=== PATIENT | male | born 1975 | race Caucasian/White ===

== ENCOUNTER 2016-12-05 18:45 | Emergency (ER) | payer OTHER ==
[2016-12-05 19:02] VITALS: BP 135/64
--- NOTE | 2016-12-05 19:28 | UC ---
Head Injury HPI - History Of Current Complaint Chief Complaint: UCHeadInjury Stated Complaint: HEAD INJURY Time Seen by Provider: 12/05/16 19:22 Hx Obtained From: Patient Onset/Duration: Sudden Onset - Hit head on a steel beam walking up stair from the cellar. Headache started 30 minutes after hitting head., Lasting Hours - 7, Still Present Severity Currently: Moderate Severity Initially: Moderate Character: Throbbing Associated Signs And Symptoms: Positive: Neck Pain - started 2 weeks ago, no worsening since the head trauma.. Negative: LOC (Time In Secs./Mins/Hrs), Confusion, Memory Loss, Seizure, Nausea - Risk Factors SDH Risk Factor: Recent Trauma - Allergies/Home Medications Allergies/Adverse Reactions: Allergies Allergy/AdvReac Type Severity Reaction Status Date / Time Doxycycline Allergy Severe HEART STOPS Verified 12/05/16 18:51 PMH/Surg Hx/FS Hx/Imm Hx Previously Healthy: Yes - Surgical History Surgical History: Yes Surgery Procedure, Year, and Place: CARDIAC CATH - Family History Known Family History: Positive: Cardiac Disease Negative: Hypertension, Diabetes - Social History Occupation: Employed Full-time Lives: With Family Alcohol Use: None Substance Use Type: None Smoking Status (MU): Heavy Every Day Tobacco Smoker Type: Cigarettes Amount Used/How Often: 1/2 PPD Household Exposure Type: Cigarettes Review of Systems Eyes: Blurred Vision - transiently All Other Systems Reviewed And Are Negative: Yes Physical Exam Triage Information Reviewed: Yes Appearance: Well-Appearing, No Pain Distress, Well-Nourished Vital Signs: Initial Vital Signs Temp 98.7 F 12/05/16 18:52 Pulse 69 12/05/16 18:52 Resp 16 12/05/16 18:52 BP 135/64 12/05/16 18:52 Pulse Ox 99 12/05/16 18:52 Vital Signs Reviewed: Yes Eyes: Positive: Conjunctiva Inflamed ENT: Positive: Pharynx normal, TMs normal Neck: Positive: Tenderness @ - all up the spinous processes. Has been chronic. Respiratory Exam: Normal Cardiovascular Exam: Normal Musculoskeletal Exam: Normal Neurological Exam: Normal Psychological Exam: Normal Skin Exam: Normal Head Injury Course/Dx - Differential Dx/Diagnosis Differential Diagnosis/HQI/PQRI: Concussion Without LOC, Contusion, Hematoma Provider Diagnoses: Contusion head. Headache Discharge - Discharge Plan Condition: Stable Disposition: HOME Patient Education Materials: Scalp Contusion in Adults (ED), Hematoma (ED), Post Concussion Syndrome (ED) Referrals: Donavan Calvert MD [Primary Care Provider] - If Needed Additional Instructions: Ice every 2 hours for 48 hours. Sleep may get rid of the headache. Ibuprofen for pain.
== END 2016-12-05 19:51 | disposition home or self-care (01) ==
LOC: UCCORT 18:45
DX: S00.93XA Contusion of unspecified part of head, initial encounter (principal); R51 Headache; W22.09XA Striking against other stationary object, initial encounter; Y93.89 Activity, other specified; Y92.008 Other place in unspecified non-institutional (private) residence as the place of occurrence of the external cause; M54.2 Cervicalgia; Z88.1 Allergy status to other antibiotic agents; F17.210 Nicotine dependence, cigarettes, uncomplicated
CPT/HCPCS: 99211; G0463

== ENCOUNTER 2017-08-01 07:12 | Emergency (ER) | payer OTHER ==
[2017-08-01 08:23] VITALS: BP 128/79
--- NOTE | 2017-08-01 08:55 | UC ---
Throat Pain/Nasal Brian HPI - HPI Summary HPI Summary: C/O left sided throat pain over the last several months. Pain worse recently - History of Current Complaint Chief Complaint: UCEar Stated Complaint: SORE THROAT Time Seen by Provider: 08/01/17 08:17 Hx Obtained From: Patient Onset/Duration: Gradual Onset, Lasting Weeks - 8, Worse Since - last 4-5 days Severity: Moderate Pain Intensity: 0 Cough: None Associated Signs & Symptoms: Positive: Dysphagia. Negative: Drooling, Wheezing , Hoarseness, Sinus Discomfort Related History: Seasonal Allergies - Epiglottits Risk Factors Epiglottis Risk Factors: Negative - Allergies/Home Medications Allergies/Adverse Reactions: Allergies Allergy/AdvReac Type Severity Reaction Status Date / Time doxycycline Allergy Heart stops Verified 08/01/17 08:24 hay fever Allergy Eyes Uncoded 08/01/17 08:25 Itchy/Swollen/Red/Watery PMH/Surg Hx/FS Hx/Imm Hx Previously Healthy: Yes - Surgical History Surgical History: Yes Surgery Procedure, Year, and Place: CARDIAC CATH 2005 - Family History Known Family History: Positive: Cardiac Disease Negative: Hypertension, Diabetes - Social History Occupation: Employed Full-time Lives: With Family Alcohol Use: None Substance Use Type: Excessive Caffeine Smoking Status (MU): Light Every Day Tobacco Smoker Type: Cigarettes Amount Used/How Often: 1/2 PPD Have You Smoked in the Last Year: Yes Household Exposure Type: Cigarettes Review of Systems ENT: Sore Throat, Nasal Discharge Is Patient Immunocompromised?: No All Other Systems Reviewed And Are Negative: Yes Physical Exam Triage Information Reviewed: Yes Appearance: Well-Appearing, No Pain Distress, Well-Nourished Vital Signs: Initial Vital Signs Temp 98.9 F 08/01/17 08:12 Pulse 67 08/01/17 08:12 Resp 18 08/01/17 08:12 BP 128/79 08/01/17 08:12 Pulse Ox 100 08/01/17 08:12 Vital Signs Reviewed: Yes Eyes: Positive: Conjunctiva Clear ENT: Positive: Nasal congestion - with allergic changes, TMs normal, Tonsillar swelling - on the left side with prominence compared to the right side Dental Exam: Normal Dental: Positive: Dental Fracture @. Negative: Percussion Tenderness @ Neck: Positive: Tenderness @ - left submandibular Lympth nodes, Enlarged Nodes @ - left submandibular Respiratory Exam: Normal Cardiovascular Exam: Normal Musculoskeletal Exam: Normal Neurological Exam: Normal Psychological Exam: Normal Skin Exam: Normal Throat Pain/Nasal Course/Dx - Differential Dx/Diagnosis Differential Diagnosis/HQI/PQRI: Peritonsillar Abscess, Pharyngitis, Tonsillitis Provider Diagnoses: Left peritonsillar abscess Discharge - Sign-Out/Discharge Documenting (check all that apply): Discharge - Discharge Plan Condition: Stable Disposition: HOME Prescriptions: Amoxicillin/Clavulanate TAB* [Augmentin TAB 875*] 875 mg PO BID #20 tab Patient Education Materials: Peritonsillar Abscess (ED), Amoxicillin/ Clavulanate Potassium (By mouth) Referrals: Donavan Calvert MD [Primary Care Provider] - Additional Instructions: Be sure to floss daily. If you get loose stools with the antibiotic, you can take an imodium (loperamide ) with each antibiotic dose. - Billing Disposition and Condition Condition: STABLE Disposition: HOME
== END 2017-08-01 09:10 | disposition home or self-care (01) ==
LOC: UCCORT 07:12
DX: J36 Peritonsillar abscess (principal); Z88.1 Allergy status to other antibiotic agents; Z91.048 Other nonmedicinal substance allergy status; F17.210 Nicotine dependence, cigarettes, uncomplicated
CPT/HCPCS: 99212; G0463

== ENCOUNTER 2018-05-29 08:30 | Emergency (ER) | payer OTHER ==
[2018-05-29 08:43] VITALS: BP 122/77
--- NOTE | 2018-05-29 08:59 | UC ---
Back Pain HPI - HPI Summary HPI Summary: Fall on ice at home an hour ago. There is pain radiating down the left leg. He hit tailbone and has diffuse low back pain as well. He has prior upper back pain. No prior back surgery. - History of Current Complaint Chief Complaint: UCBackPain Stated Complaint: S/P FALL TAILBONE INJURY Time Seen by Provider: 05/29/18 08:36 Pain Intensity: 10 - Risk Factors AAA Risk Factors: Negative Cauda Equina Risk Factors: Negative - Allergies/Home Medications Allergies/Adverse Reactions: Allergies Allergy/AdvReac Type Severity Reaction Status Date / Time doxycycline Allergy Tachycardia Verified 05/29/18 08:43 PMH/Surg Hx/FS Hx/Imm Hx Previously Healthy: No - prior fractures and upper back pain. - Surgical History Surgical History: Yes Surgery Procedure, Year, and Place: CARDIAC CATH 2005-no stent, no [place] - Family History Known Family History: Positive: Cardiac Disease Negative: Hypertension, Diabetes - Social History Occupation: Employed Full-time Alcohol Use: None Substance Use Type: None Smoking Status (MU): Heavy Every Day Tobacco Smoker Type: Cigarettes Amount Used/How Often: 1 PPD Length of Time of Smoking/Using Tobacco: since age 15 Have You Smoked in the Last Year: Yes Household Exposure Type: Cigarettes Review of Systems All Other Systems Reviewed And Are Negative: Yes Musculoskeletal: Positive: Arthralgia, Decreased ROM, Myalgia Physical Exam Triage Information Reviewed: Yes Appearance: Pain Distress - Obvious pain with changes in position and sitting. Vital Signs: Initial Vital Signs Temp 98.2 F 05/29/18 08:38 Pulse 82 05/29/18 08:38 Resp 18 05/29/18 08:38 BP 122/77 05/29/18 08:38 Pulse Ox 100 05/29/18 08:38 Vital Signs Reviewed: Yes Eyes: Positive: Conjunctiva Clear ENT: Positive: Normal ENT inspection, Pharynx normal Neck: Positive: Supple, Nontender Respiratory: Positive: No respiratory distress, No accessory muscle use Cardiovascular: Positive: Brisk Capillary Refill Abdomen Description: Negative: Distended Musculoskeletal Exam: Other - Diffuse lower back and sacral tenderness. Flexion to 80 degrees and pain. Extension 20 degrees. Neurological Exam: Other - toe raise andheel raise 5/5 strength bharathi. Bharathi patellar reflexes 2+. Neurological: Positive: Alert, Muscle Tone Normal, Other: - straight leg raise causes pain in left leg.. Negative: Fatigued Psychological: Positive: Age Appropriate Behavior Skin: Negative: Rashes Back Pain Course/Dx - Course Course Of Treatment: Fall. No neurologic deficits or suggestion of cord compression. x rays reviewed by me. F/u pcp. Final read shows possible compression fracture. He was counselled that pcp will need to f/u with mri and to discuss bone density if it is in fact a compression fracture. - Differential Dx/Diagnosis Provider Diagnosis: Fall due to ice or snow, Low back pain Discharge - Sign-Out/Discharge Documenting (check all that apply): Patient Departure All imaging exams completed and their final reports reviewed: Yes - Discharge Plan Condition: Fair Disposition: HOME Prescriptions: HYDROcodone/ACETAMIN 5-325 MG* [L[place] 5-325 TAB*] 2 tab PO Q6H PRN #20 tab MDD 6 PRN Reason: Pain Patient Education Materials: Acute Low Back Pain (ED), Back Pain (ED) Referrals: Donavan Calvert MD [Primary Care Provider] - 1 Day Additional Instructions: Possible compression fracture of the back which may need an MRI for follow up and a discussion about bone density with your primary care doctor. - Billing Disposition and Condition Condition: FAIR Disposition: Home
== END 2018-05-29 10:15 | disposition home or self-care (01) ==
LOC: UCCORT 08:30
DX: M54.5 Low back pain (principal); M79.605 Pain in left leg; M54.89 Other dorsalgia; F17.210 Nicotine dependence, cigarettes, uncomplicated; Z88.1 Allergy status to other antibiotic agents; W00.9XXA Unspecified fall due to ice and snow, initial encounter; Y92.9 Unspecified place or not applicable
CPT/HCPCS: 72100; 72220; 99212; G0463

== ENCOUNTER 2018-10-22 07:09 | Emergency (ER) | payer OTHER ==
[2018-10-22 07:23] VITALS: BP 128/69
--- NOTE | 2018-10-22 08:04 | UC ---
Elbow Pain - HPI Summary HPI Summary: 2 week history of medial right elbow pain, acute onset one day when he lifted a cofee mug and experienced a sharp pain. Mild swelling off and on. Has not used analgesics, but has been icing the area regularly with some relief. 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 - History of Current Complaint Chief Complaint: UCUpperExtremity Stated Complaint: RIGHT ELBOW COMPLAINT Time Seen by Provider: 10/22/18 07:57 Hx Obtained From: Patient Onset/Duration: Weeks Severity Initially: Moderate Severity Currently: Mild Pain Intensity: 2 Location Of Pain: Is Discrete @ - medial right elbow Character: Sharp, Aching Aggravating Factor(s): Movement, Pulling, Twisting Alleviating Factor(s): Rest, Ice Associated Signs And Symptoms: Positive: Negative. Negative: Numbness/Tingling - Allergies/Home Medications Allergies/Adverse Reactions: Allergies Allergy/AdvReac Type Severity Reaction Status Date / Time doxycycline Allergy Tachycardia Verified 10/22/18 07:23 Home Medications: Home Medications NK [No Home Medications Reported] 10/22/18 [History Confirmed 10/22/18] PMH/Surg Hx/FS Hx/Imm Hx Previously Healthy: Yes Psychological History: Anxiety - Surgical History Surgical History: Yes Surgery Procedure, Year, and Place: CARDIAC CATH 2005-no stent, no [place] - Family History Known Family History: Positive: Cardiac Disease Negative: Hypertension, Diabetes - Social History Occupation: Employed Full-time Lives: With Family Alcohol Use: None Substance Use Type: None Smoking Status (MU): Heavy Every Day Tobacco Smoker Type: Cigarettes Amount Used/How Often: 1 PPD Length of Time of Smoking/Using Tobacco: since age 15 Have You Smoked in the Last Year: Yes Household Exposure Type: Cigarettes Review of Systems All Other Systems Reviewed And Are Negative: Yes Constitutional: Positive: Negative Respiratory: Positive: Other - smoker, has tried many modalities to assist stopping, including Chantix and hypnosis. Neurovascular: Positive: Negative. Negative: Decreased Sensation Musculoskeletal: Positive: Arthralgia Neurological: Positive: Negative Is Patient Immunocompromised?: No Physical Exam Triage Information Reviewed: Yes Appearance: Well-Appearing, Pain Distress - mild Vital Signs: Initial Vital Signs Temp 97.6 F 10/22/18 07:19 Pulse 66 10/22/18 07:19 Resp 18 10/22/18 07:19 BP 128/69 10/22/18 07:19 Pulse Ox 100 10/22/18 07:19 Vital Signs Reviewed: Yes Eyes: Positive: Conjunctiva Clear ENT: Positive: Pharynx normal Dental Exam: Normal Respiratory: Positive: Lungs clear, Normal breath sounds Cardiovascular: Positive: RRR, No Murmur Musculoskeletal Exam: Other - No swelling, erythema or warmth right elbow area. Olecranon is tender to palpation medially. No joint effusion. Neurological: Positive: Alert, Muscle Tone Normal Psychological Exam: Other - mildly anxious Diagnostics - Radiology No standard instances Radiology Interpretation Completed By: Radiologist - Impression by Dr. Hunter: unremarkable right elbow. Elbow Pain Course/Dx - Course Course Of Treatment: Brace, ice and physical therapy for treatment of medial epicondylitis. - Differential Dx/Diagnosis Differential Diagnosis/HQI/PQRI: Sprain, Strain, Tendonitis Provider Diagnosis: Medial epicondylitis, right elbow Discharge - Sign-Out/Discharge Documenting (check all that apply): Patient Departure All imaging exams completed and their final reports reviewed: Yes - Discharge Plan Condition: Stable Disposition: HOME Patient Education Materials: Tendinitis (ED) Referrals: Donavan Calvert MD [Primary Care Provider] - Additional Instructions: You have a tendonitis of the right elbow. You have a referral to physical therapy. Use of an elbow brace (look for a tennis elbow brace) can help to off load the tendon and decrease pain. Continue use of ice after activity. - Billing Disposition and Condition Condition: STABLE Disposition: Home
== END 2018-10-22 08:52 | disposition home or self-care (01) ==
LOC: UCCORT 07:09
DX: M77.01 Medial epicondylitis, right elbow (principal); X50.0XXA Overexertion from strenuous movement or load, initial encounter; X50.3XXA Overexertion from repetitive movements, initial encounter; Y93.89 Activity, other specified; Y92.79 Other farm location as the place of occurrence of the external cause; Y99.0 Civilian activity done for income or pay; F17.210 Nicotine dependence, cigarettes, uncomplicated
CPT/HCPCS: 99211; G0463

== ENCOUNTER 2019-03-11 08:37 | Emergency (ER) | payer BC ==
--- OUTSIDE RECORDS SUMMARY | 2019-03-11 08:44 | XMS REPORT | Continuity of Care Document ---
:1975 External Reference #:[id number] Author Name [facility] N.P. Address [address] [place] [address] [address] [place] [address] Problems Active Problems Provider Date Anxiety disorder Donavan Calvert M.D. Onset: 07/24/2016 Social History Type Date Description Comments Sex Unknown ETOH Use Denies alcohol use Recreational Drug Use Denies Drug Use Tobacco Use Start: Unknown Light tobacco smoker (10 or fewer cigarettes/day) Smoking Status Reviewed: 08/23/17 Light tobacco smoker (10 or fewer cigarettes/day) Allergies, Adverse Reactions, Alerts Active Allergies Reaction Severity Comments Date Doxycycline 07/24/2016 Medications Active Medications SIG Qnty Indications Ordering Provider Date Azithromycin 1 tab by mouth 10tabs J20.9 Donaavn Calvert, 02/13/2019 500mg every day x 10 M.D. Tablets days Meloxicam take 1 tablet by 60tabs M25.521 Donavan Calvert, 11/16/2018 15mg Tablets mouth twice a M.D. day as needed Immunizations Description No Information Available Vital Signs Date Vital Result Comment 02/20/2019 11:14am BP Systolic 130 mmHg BP Diastolic 65 mmHg Height 71 inches 5'11" Heart Rate 78 /min Respiratory Rate 16 /min 02/13/2019 3:16pm BP Systolic 150 mmHg BP Diastolic 70 mmHg Height 71 inches 5'11" Weight 211.00 lb BMI (Body Mass Index) 29.4 kg/m2 Heart Rate 101 /min Respiratory Rate 16 /min Results Description No Information Available Procedures Description No Information Available Medical Devices Description No Information Available Encounters Type Date Location Provider Dx Diagnosis Office Visit 02/20/2019 [facility] J44.9 Chronic obstructive 11:15a N.P. pulmonary disease, unspecified N40.1 Benign prostatic hyperplasia with lower urinary tract symp M54.5 Low back pain M79.604 Pain in right leg M25.561 Pain in right knee M79.671 Pain in right foot F41.9 Anxiety disorder, unspecified F33.9 Major depressive disorder, recurrent, unspecified G47.00 Insomnia, unspecified L20.9 Atopic dermatitis, unspecified J30.9 Allergic rhinitis, unspecified F17.210 Nicotine dependence, cigarettes, uncomplicated F43.12 Post-traumatic stress disorder, chronic R35.1 Nocturia L84 Corns and callosities E78.2 Mixed hyperlipidemia H66.92 Otitis media, unspecified, left ear J01.90 Acute sinusitis, unspecified S32.000A Wedge compression fracture of unsp lumbar vertebra, init E55.9 Vitamin D deficiency, unspecified E66.9 Obesity, unspecified M54.42 Lumbago with sciatica, left side M25.521 Pain in right elbow J20.9 Acute bronchitis, unspecified Office Visit 02/13/2019 3:30p [facility] Alex Fernandez44.9 Chronic obstructive N.P. pulmonary disease, unspecified N40.1 Benign prostatic hyperplasia with lower urinary tract symp M54.5 Low back pain M79.604 Pain in right leg M25.561 Pain in right knee M79.671 Pain in right foot F41.9 Anxiety disorder, unspecified F33.9 Major depressive disorder, recurrent, unspecified G47.00 Insomnia, unspecified L20.9 Atopic dermatitis, unspecified J30.9 Allergic rhinitis, unspecified F17.210 Nicotine dependence, cigarettes, uncomplicated F43.12 Post-traumatic stress disorder, chronic R35.1 Nocturia L84 Corns and callosities E78.2 Mixed hyperlipidemia H66.92 Otitis media, unspecified, left ear J01.90 Acute sinusitis, unspecified S32.000A Wedge compression fracture of unsp lumbar vertebra, init E55.9 Vitamin D deficiency, unspecified E66.9 Obesity, unspecified M54.42 Lumbago with sciatica, left side M25.521 Pain in right elbow J20.9 Acute bronchitis, unspecified Office Visit 11/16/2018 10:00a [facility] Alex Fernandez44.9 Chronic obstructive N.P. pulmonary disease, unspecified N40.1 Benign prostatic hyperplasia with lower urinary tract symp M54.5 Low back pain M79.604 Pain in right leg M25.561 Pain in right knee M79.671 Pain in right foot F41.9 Anxiety disorder, unspecified F33.9 Major depressive disorder, recurrent, unspecified G47.00 Insomnia, unspecified L20.9 Atopic dermatitis, unspecified J30.9 Allergic rhinitis, unspecified F17.210 Nicotine dependence, cigarettes, uncomplicated F43.12 Post-traumatic stress disorder, chronic R35.1 Nocturia L84 Corns and callosities E78.2 Mixed hyperlipidemia H66.92 Otitis media, unspecified, left ear J01.90 Acute sinusitis, unspecified S32.000A Wedge compression fracture of unsp lumbar vertebra, init E55.9 Vitamin D deficiency, unspecified E66.9 Obesity, unspecified M54.42 Lumbago with sciatica, left side M25.521 Pain in right elbow Assessments Date Code Description Provider 02/20/2019 J44.9 Chronic obstructive pulmonary disease, [facility], N.P. unspecified 02/20/2019 N40.1 Benign prostatic hyperplasia with lower [facility], N.P. urinary tract symptoms 02/20/2019 M54.5 Low back pain [facility], N.P. 02/20/2019 M79.604 Pain in right leg [facility], N.P. 02/20/2019 M25.561 Pain in right knee [facility], N.P. 02/20/2019 M79.671 Pain in right foot [facility], N.P. 02/20/2019 F41.9 Anxiety disorder, unspecified Long [facility], N.P. 02/20/2019 F33.9 Major depressive disorder, recurrent, [facility], N.P. unspecified 02/20/2019 G47.00 Insomnia, unspecified [facility], N.P. 02/20/2019 L20.9 Atopic dermatitis, unspecified [facility], N.P. 02/20/2019 J30.9 Allergic rhinitis, unspecified [facility], N.P. 02/20/2019 F17.210 Nicotine dependence, cigarettes, [facility], N.P. uncomplicated 02/20/2019 F43.12 Post-traumatic stress disorder, chronic [facility], N.P. 02/20/2019 R35.1 Nocturia [facility], N.P. 02/20/2019 L84 Corns and callosities [facility], N.P. 02/20/2019 E78.2 Mixed hyperlipidemia [facility], N.P. 02/20/2019 H66.92 Otitis media, unspecified, left ear [facility], N.P. 02/20/2019 J01.90 Acute sinusitis, unspecified [facility], N.P. 02/20/2019 S32.000A Wedge compression fracture of unspecified [facility] , N.P. lumbar vertebra, initial encounter for closed fracture 02/20/2019 E55.9 Vitamin D deficiency, unspecified [facility], N.P. 02/20/2019 E66.9 Obesity, unspecified [facility], N.P. 02/20/2019 M54.42 Lumbago with sciatica, left side [facility], N.P. 02/20/2019 M25.521 Pain in right elbow [facility] N.P. 02/20/2019 J20.9 Acute bronchitis, unspecified [facility], N.P. 02/13/2019 J44.9 Chronic obstructive pulmonary disease, [facility], N.P. unspecified 02/13/2019 N40.1 Benign prostatic hyperplasia with lower [facility], N.PGila urinary tract symptoms 02/13/2019 M54.5 Low back pain [facility], N.P. 02/13/2019 M79.604 Pain in right leg [facility] N.P. 02/13/2019 M25.561 Pain in right knee [facility] N.P. 02/13/2019 M79.671 Pain in right foot Logn Trinidad N.P. 02/13/2019 F41.9 Anxiety disorder, unspecified [facility], N.P. 02/13/2019 F33.9 Major depressive disorder, recurrent, [facility] N.P. unspecified 02/13/2019 G47.00 Insomnia, unspecified [facility], N.P. 02/13/2019 L20.9 Atopic dermatitis, unspecified [facility] N.P. 02/13/2019 J30.9 Allergic rhinitis, unspecified [facility] N.P. 02/13/2019 F17.210 Nicotine dependence, cigarettes, [facility] N.P. uncomplicated 02/13/2019 F43.12 Post-traumatic stress disorder, chronic [facility], N.P. 02/13/2019 R35.1 Nocturia [facility], N.P. 02/13/2019 L84 Corns and callosities Long [facility], N.P. 02/13/2019 E78.2 Mixed hyperlipidemia [facility], N.P. 02/13/2019 H66.92 Otitis media, unspecified, left ear [facility], N.P. 02/13/2019 J01.90 Acute sinusitis, unspecified [facility], N.P. 02/13/2019 S32.000A Wedge compression fracture of unspecified [facility] , N.P. lumbar vertebra, initial encounter for closed fracture 02/13/2019 E55.9 Vitamin D deficiency, unspecified [facility], N.P. 02/13/2019 E66.9 Obesity, unspecified [facility], N.P. 02/13/2019 M54.42 Lumbago with sciatica, left side [facility], N.P. 02/13/2019 M25.521 Pain in right elbow [facility], N.P. 02/13/2019 J20.9 Acute bronchitis, unspecified [facility], N.P. 11/16/2018 J44.9 Chronic obstructive pulmonary disease, [facility], N.P. unspecified 11/16/2018 N40.1 Benign prostatic hyperplasia with lower [facility]idad N.PGila urinary tract sympto 11/16/2018 M54.5 Low back pain [facility] N.P. 11/16/2018 M79.604 Pain in right leg [facility] N.P. 11/16/2018 M25.561 Pain in right knee [facility] N.P. 11/16/2018 M79.671 Pain in right foot [facility], N.P. 11/16/2018 F41.9 Anxiety disorder, unspecified [facility], N.P. 11/16/2018 F33.9 Major depressive disorder, recurrent, [facility] N.P. unspecified 11/16/2018 G47.00 Insomnia, unspecified [facility], N.P. 11/16/2018 L20.9 Atopic dermatitis, unspecified [facility] N.P. 11/16/2018 J30.9 Allergic rhinitis, unspecified [facility], N.P. 11/16/2018 F17.210 Nicotine dependence, cigarettes, [facility] N.P. uncomplicated 11/16/2018 F43.12 Post-traumatic stress disorder, chronic Long [facility] N.P. 11/16/2018 R35.1 Nocturia [facility], N.P. 11/16/2018 L84 Corns and callosities Long [facility]idad N.P. 11/16/2018 E78.2 Mixed hyperlipidemia [facility] N.P. 11/16/2018 H66.92 Otitis media, unspecified, left ear [facility] N.P. 11/16/2018 J01.90 Acute sinusitis, unspecified Long [facility] N.P. 11/16/2018 S32.000A Wedge compression fracture of unspecified Long [facility]idad N.PGila lumbar vertebra, i 11/16/2018 E55.9 Vitamin D deficiency, unspecified Long [facility] N.P. 11/16/2018 E66.9 Obesity, unspecified [facility] N.P. 11/16/2018 M54.42 Lumbago with sciatica, left side [facility] N.P. 11/16/2018 M25.521 Pain in right elbow [facility] N.PGila Plan of Treatment No Information Available Functional Status Description No Information Available Mental Status Description No Information Available Referrals Description No Information Available
--- OUTSIDE RECORDS SUMMARY | 2019-03-11 08:44 | XMS REPORT | Continuity of Care Document ---
:1975 External Reference #:[id number] Author Name Long Trinidad N.P. Address [address] [place] [address] [address] [place] [address] Problems Active Problems Provider Date Anxiety disorder [...] Azithromycin 1 tab by mouth 10tabs J20.9 Donavan Calvert, 02/13/2019 500mg every day x 10 M.D. Tablets days Meloxicam take 1 tablet by 60tabs M25.521 Donavan Calvert, 11/16/2018 15mg Tablets mouth twice a M.D. day as needed Immunizations Description No Information Available Vital Signs Date Vital Result Comment 02/13/2019 3:16pm BP Systolic 150 mmHg BP Diastolic 70 mmHg Height 71 inches 5'11" Weight 211.00 lb BMI (Body Mass Index) 29.4 kg/m2 Heart Rate 101 /min Respiratory Rate 16 /min 11/16/2018 10:01am BP Systolic 128 mmHg BP Diastolic 64 mmHg Height 71 inches 5'11" Weight 215.00 lb BMI (Body Mass Index) 30.0 kg/m2 Heart Rate 70 /min Respiratory Rate 18 /min Results Description No Information Available Procedures Description No Information Available Medical Devices Description No Information Available Encounters Type Date Location Provider Dx Diagnosis Office Visit 02/13/2019 [facility] Alex Fernandez44.9 Chronic obstructive 3:30p N.P. pulmonary disease, unspecified N40.1 Benign prostatic [...] Acute bronchitis, unspecified Office Visit 11/16/2018 10:00a [facility] Long Trinidad J44.9 Chronic obstructive N.P. pulmonary disease, unspecified N40.1 [...] right elbow Assessments Date Code Description Provider 02/13/2019 J44.9 Chronic obstructive pulmonary disease, Long Trinidad, N.P. unspecified 02/13/2019 N40.1 Benign prostatic hyperplasia with lower Long Trinidad, N.P. urinary tract symptoms 02/13/2019 M54.5 Low back pain Long Trinidad, N.P. 02/13/2019 M79.604 Pain in right leg Long Trinidad, N.P. 02/13/2019 M25.561 Pain in right knee Long Trinidad N.P. 02/13/2019 M79.671 Pain in right foot Long Trinidad, N.P. 02/13/2019 F41.9 Anxiety disorder, unspecified Long Trinidad, N.P. 02/13/2019 F33.9 Major depressive disorder, recurrent, Long Trinidad, N.P. unspecified 02/13/2019 G47.00 Insomnia, unspecified Long Trinidad, N.P. 02/13/2019 L20.9 Atopic dermatitis, unspecified Long Trinidad, N.P. 02/13/2019 J30.9 Allergic rhinitis, unspecified Long Trinidad N.P. 02/13/2019 F17.210 Nicotine dependence, cigarettes, Long Trinidad N.P. uncomplicated 02/13/2019 F43.12 Post-traumatic stress disorder, chronic Long Trinidad, N.P. 02/13/2019 R35.1 Nocturia Long Trinidad, N.P. 02/13/2019 L84 Corns and callosities Long Trinidad, N.P. 02/13/2019 E78.2 Mixed hyperlipidemia Long Trinidad, N.P. 02/13/2019 H66.92 Otitis media, unspecified, left ear Long Trinidad N.P. 02/13/2019 J01.90 Acute sinusitis, unspecified Long Trinidad, N.P. 02/13/2019 S32.000A Wedge compression fracture of unspecified Long Trinidad , N.P. lumbar vertebra, initial encounter for closed fracture 02/13/2019 E55.9 Vitamin D deficiency, unspecified Long Trinidad, N.P. 02/13/2019 E66.9 Obesity, unspecified Long Trinidad, N.P. 02/13/2019 M54.42 Lumbago with sciatica, left side Long Trinidad N.P. 02/13/2019 M25.521 Pain in right elbow Long Trinidad N.P. 02/13/2019 J20.9 Acute bronchitis, unspecified Long Trinidad, N.P. 11/16/2018 J44.9 Chronic obstructive pulmonary disease, Long Trinidad, N.P. unspecified 11/16/2018 N40.1 Benign prostatic hyperplasia with lower Long Trinidad N.PGila urinary tract sympto 11/16/2018 M54.5 Low back pain Long Trinidad, N.P. 11/16/2018 M79.604 Pain in right leg [...] N.P. 11/16/2018 F17.210 Nicotine dependence, cigarettes, Long Trinidad, N.P. uncomplicated 11/16/2018 F43.12 Post-traumatic stress disorder, chronic Long Trinidad, N.P. 11/16/2018 R35.1 Nocturia Long Trinidad, N.P. 11/16/2018 L84 Corns and callosities Long Trinidad, N.P. 11/16/2018 E78.2 Mixed hyperlipidemia Long Trinidad N.P. 11/16/2018 H66.92 Otitis media, unspecified, left ear Long Trinidad N.P. 11/16/2018 J01.90 Acute sinusitis, unspecified Long Trinidad, N.P. 11/16/2018 S32.000A Wedge compression fracture of unspecified Long Trinidad , N.PGila lumbar vertebra, i 11/16/2018 E55.9 Vitamin D deficiency, unspecified Long Trinidad, N.P. 11/16/2018 E66.9 Obesity, unspecified Long Trinidad, N.P. 11/16/2018 M54.42 Lumbago with sciatica, left side Long Trinidad N.P. 11/16/2018 M25.521 Pain in right elbow Long Trinidad N.PGila Plan of Treatment No Information Available Functional Status Description No Information Available Mental Status Description No Information Available Referrals Description No Information Available
--- OUTSIDE RECORDS SUMMARY | 2019-03-11 08:44 | XMS REPORT | Continuity of Care Document ---
:1975 External Reference #:[id number] Author Name Long Trinidad N.P. Address [address] [place] [address] [address] [place] [address] Problems Active Problems Provider Date Anxiety disorder [...] Medications SIG Qnty Indications Ordering Provider Date Amoxicillin/Clavulanat 1 tab by mouth 20tabs J01.90 Donavan Calvert, 03/01 e Potassium twice a day M.DGila 875-125mg Tablets H66.93 Prednisone 2 tab by mouth daily 4 30tabs J20.9 Donavan Calvert 03/01/2019 20mg days,30mg M., MGilaDGila Tablets x3d,[id number],[id number] Azithromycin 1 tab by mouth every day x 10tabs J20.9 Donavan Calvert 2018 500mg 10 days M., M.DGila Tablets Meloxicam take 1 tablet by mouth 60tabs M25.521 Donavan Calvert 11/16/2018 15mg twice a day as needed M., MGilaDGila Tablets Immunizations Description No Information Available Vital Signs Date Vital Result Comment 03/01/2019 2:56pm BP Systolic 140 mmHg BP Diastolic 70 mmHg Height 71 inches 5'11" Weight 214.00 lb BMI (Body Mass Index) 29.8 kg/m2 Heart Rate 102 /min Respiratory Rate 16 /min 02/20/2019 11:14am BP Systolic 130 mmHg BP Diastolic 65 mmHg Height 71 inches 5'11" Heart Rate 78 /min Respiratory Rate 16 /min Results Description No Information Available Procedures Date Code Description Status 03/01/2019 60702 Spirometry Completed 03/01/2019 08237 Tympanometry Completed Medical Devices Description No Information Available Encounters Type Date Location Provider Dx Diagnosis Office Visit 03/01/2019 [facility] Long Trinidad, J44.9 Chronic obstructive 3:00p N.P. pulmonary disease, unspecified N40.1 Benign prostatic [...] elbow J20.9 Acute bronchitis, unspecified Office Visit 02/20/2019 11:15a [facility] Long Trinidad J44.9 Chronic obstructive N.P. pulmonary [...] Acute bronchitis, unspecified Office Visit 02/13/2019 3:30p [facility] Long Trinidad, J44.9 Chronic obstructive N.P. pulmonary disease, unspecified [...] Acute bronchitis, unspecified Office Visit 11/16/2018 10:00a [facility] Long Trinidad, J44.9 Chronic obstructive N.P. pulmonary disease, unspecified [...] right elbow Assessments Date Code Description Provider 03/01/2019 J44.9 Chronic obstructive pulmonary disease, Long Trinidad, N.P. unspecified 03/01/2019 N40.1 Benign prostatic hyperplasia with lower Long Trinidad, N.P. urinary tract symptoms 03/01/2019 M54.5 Low back pain Long Trinidad, N.P. 03/01/2019 M79.604 Pain in right leg Long Trinidad, N.P. 03/01/2019 M25.561 Pain in right knee Long Trinidad, N.P. 03/01/2019 M79.671 Pain in right foot Long Trinidad, N.P. 03/01/2019 F41.9 Anxiety disorder, unspecified Long Trinidad, N.P. 03/01/2019 F33.9 Major depressive disorder, recurrent, Long Trinidad, N.P. unspecified 03/01/2019 G47.00 Insomnia, unspecified Long Trinidad, N.P. 03/01/2019 L20.9 Atopic dermatitis, unspecified Long Trinidad, N.P. 03/01/2019 J30.9 Allergic rhinitis, unspecified Long Trinidad, N.P. 03/01/2019 F17.210 Nicotine dependence, cigarettes, Long Trinidad, N.P. uncomplicated 03/01/2019 F43.12 Post-traumatic stress disorder, chronic Long Trinidad, N.P. 03/01/2019 R35.1 Nocturia Long Trinidad, N.P. 03/01/2019 L84 Corns and callosities Long Trinidad, N.P. 03/01/2019 E78.2 Mixed hyperlipidemia Long Trinidad, N.P. 03/01/2019 H66.92 Otitis media, unspecified, left ear Long Trinidad, N.P. 03/01/2019 J01.90 Acute sinusitis, unspecified Long Trinidad, N.P. 03/01/2019 S32.000A Wedge compression fracture of unspecified Long Trinidad , N.P. lumbar vertebra, initial encounter for closed fracture 03/01/2019 E55.9 Vitamin D deficiency, unspecified Long Trinidad, N.P. 03/01/2019 E66.9 Obesity, unspecified Long Trinidad, N.P. 03/01/2019 M54.42 Lumbago with sciatica, left side Long Trinidad, N.P. 03/01/2019 M25.521 Pain in right elbow Long Trinidad, N.P. 03/01/2019 J20.9 Acute bronchitis, unspecified Long Trinidad, N.P. 02/20/2019 J44.9 Chronic obstructive pulmonary disease, Long Trinidad, N.P. unspecified 02/20/2019 N40.1 Benign prostatic hyperplasia with lower Long Trinidad, N.P. urinary tract symptoms 02/20/2019 M54.5 Low back pain Long Trinidad, N.P. 02/20/2019 M79.604 Pain in right leg Long Trinidad, N.P. 02/20/2019 M25.561 Pain in right knee Long Trinidad N.P. 02/20/2019 M79.671 Pain in right foot Long Trinidad, N.P. 02/20/2019 F41.9 Anxiety disorder, unspecified Long Trinidad, N.P. 02/20/2019 F33.9 Major depressive disorder, recurrent, Long Trinidad, N.P. unspecified 02/20/2019 G47.00 Insomnia, unspecified oLng Trinidad, N.P. 02/20/2019 L20.9 Atopic dermatitis, unspecified Long Trinidad, N.P. 02/20/2019 J30.9 Allergic rhinitis, unspecified Long Trinidad N.P. 02/20/2019 F17.210 Nicotine dependence, cigarettes, Long Trinidad, N.P. uncomplicated 02/20/2019 F43.12 Post-traumatic stress disorder, chronic Long Trinidad, N.P. 02/20/2019 R35.1 Nocturia Long Trinidad, N.P. 02/20/2019 L84 Corns and callosities Long Trinidad, N.P. 02/20/2019 E78.2 Mixed hyperlipidemia Long Trinidad, N.P. 02/20/2019 H66.92 Otitis media, unspecified, left ear Long Trinidad N.P. 02/20/2019 J01.90 Acute sinusitis, unspecified Long Trinidad, N.P. 02/20/2019 S32.000A Wedge compression fracture of unspecified Long Trinidad , N.P. lumbar vertebra, initial encounter for closed fracture 02/20/2019 E55.9 Vitamin D deficiency, unspecified Long Trinidad, N.P. 02/20/2019 E66.9 Obesity, unspecified Long Trinidad, N.P. 02/20/2019 M54.42 Lumbago with sciatica, left side Long Trinidad, N.P. 02/20/2019 M25.521 Pain in right elbow Long Trinidad, N.P. 02/20/2019 J20.9 Acute bronchitis, unspecified Long Trinidad, N.P. 02/13/2019 J44.9 Chronic obstructive pulmonary disease, Long Trinidad, N.P. unspecified 02/13/2019 N40.1 Benign prostatic hyperplasia with lower Long Trinidad N.PGila urinary tract symptoms 02/13/2019 M54.5 Low back pain Long Trinidad, N.P. 02/13/2019 M79.604 Pain in right leg Long Trinidad N.P. 02/13/2019 M25.561 Pain in right knee Long Trinidad N.P. 02/13/2019 M79.671 Pain in right foot Long Trinidad, N.P. 02/13/2019 F41.9 Anxiety disorder, unspecified Long Trinidad, N.P. 02/13/2019 F33.9 Major depressive disorder, recurrent, Long Trinidad, N.P. unspecified 02/13/2019 G47.00 Insomnia, unspecified Long Trinidad N.P. 02/13/2019 L20.9 Atopic dermatitis, unspecified Long Trinidad N.P. 02/13/2019 J30.9 Allergic rhinitis, unspecified Long Trinidad, N.P. 02/13/2019 F17.210 Nicotine dependence, cigarettes, Long Trinidad, N.P. uncomplicated 02/13/2019 F43.12 Post-traumatic stress disorder, chronic Long Trinidad, N.P. 02/13/2019 R35.1 Nocturia Long Trinidad, N.P. 02/13/2019 L84 Corns and callosities Long Trinidad, N.P. 02/13/2019 E78.2 Mixed hyperlipidemia Long Trinidad N.P. 02/13/2019 H66.92 Otitis media, unspecified, left ear Long Trinidad N.P. 02/13/2019 J01.90 Acute sinusitis, unspecified Long Trinidad N.P. 02/13/2019 S32.000A Wedge compression fracture of unspecified Long Trinidad , N.PGila lumbar vertebra, initial encounter for closed fracture [...] Benign prostatic hyperplasia with lower Long Trinidad N.PGlia urinary tract sympto 11/16/2018 M54.5 Low back pain Long Trinidad N.P. 11/16/2018 M79.604 Pain in right leg Long Trinidad N.P. 11/16/2018 M25.561 Pain in right knee Long Trinidad, N.P. 11/16/2018 M79.671 Pain in right foot Long Trinidad N.P. 11/16/2018 F41.9 Anxiety disorder, unspecified Long Trinidad, N.P. 11/16/2018 F33.9 Major depressive disorder, recurrent, Long Trinidad N.P. unspecified 11/16/2018 G47.00 Insomnia, unspecified Long Trinidad N.P. 11/16/2018 L20.9 Atopic dermatitis, unspecified Long [...] Wedge compression fracture of unspecified Long Trinidad N.Priya lumbar vertebra, i 11/16/2018 E55.9 Vitamin D deficiency, unspecified Long Trinidad N.P. 11/16/2018 E66.9 Obesity, unspecified Roman Fernandez.PGila 11/16/2018 M54.42 Lumbago with sciatica, left side Long Trinidad N.PGila 11/16/2018 M25.521 Pain in right elbow Long Trinidad N.Priya Plan of Treatment No Information Available Functional Status Description No Information Available Mental Status Description No Information Available Referrals Description No Information Available
[2019-03-11 08:59] VITALS: BP 138/80
--- NOTE | 2019-03-11 09:06 | UC ---
Respiratory Complaint HPI - HPI Summary HPI Summary: Pt presents with c/o sob and wheezing. Pt states that he has been "sick" for over 2 months and has been "Just thrown pills" by PCP . Pt had chest xray here yesterday alicia snot no report. Pt has long hx of smoking and states he has "perfect lung function". - History of Current Complaint Chief Complaint: UCRespiratory Stated Complaint: SORE THROAT, EAR PAIN Time Seen by Provider: 03/11/19 08:49 Hx Obtained From: Patient Onset/Duration: Gradual Onset, Lasting Weeks, Still Present Timing: Constant Severity Initially: Mild Severity Currently: Mild Pain Intensity: 2 Character: Cough: Nonproductive Aggravating Factors: Allergens, Exertion, Deep Breaths, Recumbent Position Alleviating Factors: Nothing Associated Signs And Symptoms: Positive: Wheezing, URI - Risk Factors Pulmonary Embolism Risk Factors: Smoking Cardiac Risk Factors: Smoking Pseudomonas Risk Factors: Chronic Lung Disease Tuberculosis Risk Factors: Smoking - Allergies/Home Medications Allergies/Adverse Reactions: Allergies Allergy/AdvReac Type Severity Reaction Status Date / Time doxycycline Allergy Tachycardia Verified 03/11/19 08:46 PMH/Surg Hx/FS Hx/Imm Hx Previously Healthy: Yes Respiratory History: COPD - presumed with long smoking hx - Surgical History Surgical History: Yes Surgery Procedure, Year, and Place: CARDIAC CATH 2005-no stent, no [place] - Family History Known Family History: Positive: Cardiac Disease Negative: Hypertension, Diabetes - Social History Occupation: Employed Full-time Lives: With Family Alcohol Use: None Substance Use Type: None Smoking Status (MU): Heavy Every Day Tobacco Smoker Type: Cigarettes Amount Used/How Often: 3/4 ppd Length of Time of Smoking/Using Tobacco: since age 15 Have You Smoked in the Last Year: Yes Household Exposure Type: Cigarettes - Immunization History Vaccination Up to Date: Yes Review of Systems All Other Systems Reviewed And Are Negative: Yes Constitutional: Positive: Fatigue Skin: Positive: Negative Eyes: Positive: Negative ENT: Positive: Negative Respiratory: Positive: Shortness Of Breath, Cough, Other - wheezing Cardiovascular: Positive: Negative Gastrointestinal: Positive: Negative Genitourinary: Positive: Negative Motor: Positive: Negative Neurovascular: Positive: Negative Musculoskeletal: Positive: Negative Neurological: Positive: Negative Psychological: Positive: Negative Is Patient Immunocompromised?: No Physical Exam Triage Information Reviewed: Yes Appearance: Well-Appearing Vital Signs: Initial Vital Signs Temp 98.7 F 03/11/19 08:48 Pulse 73 03/11/19 08:48 Resp 15 03/11/19 08:48 BP 138/80 03/11/19 08:48 Pulse Ox 100 03/11/19 08:48 Vital Signs Reviewed: Yes Eye Exam: Normal ENT Exam: Normal Dental Exam: Normal Neck exam: Normal Respiratory: Positive: Wheezing Cardiovascular Exam: Normal Musculoskeletal Exam: Normal Neurological Exam: Normal Psychological Exam: Normal Skin Exam: Normal Diagnostics - Radiology No standard instances Radiology Interpretation Completed By: Radiologist - xray results from 03/10/19 Railway Switchman: Aj Cueto Daniel, ([id number]) Or Manager: GIANCARLO , (NUANCE) Report Date: 03/10/2019 14:21:00 Report Status: Final === Start of Report Content Patient Name: JEROME HAMILTON Medical Record# : [id number] Ordering Physician: Long Trinidad NP Acct.#: [id number] : 07/1975 Age: 43 Sex: M Location: [facility] Exam Date: 03/10/19 ADM Status: REG REF Order Information: CHEST PA LAT 2 VWS Accession Number: [id number] CPT: 20141 HISTORY: ACUTE BRONCHITIS, UNSPECIFIED COMPARISONS: None relevant available at the time of dictation. VIEWS: 4: Frontal dual-energy and lateral views of the chest. FINDINGS: CARDIOMEDIASTINAL SILHOUETTE: The cardiomediastinal silhouette is normal. KENNY: The kenny are normal. PLEURA: The costophrenic angles are sharp. No pleural abnormalities are noted. LUNG PARENCHYMA: The lungs are clear. ABDOMEN: The upper abdomen is clear. There is no subphrenic gas. BONES AND SOFT TISSUES: No bone or soft tissue abnormalities are noted. OTHER: None. IMPRESSION: NO ACTIVE CARDIOPULMONARY DISEASE. <Electronically signed by Aj Cueto MD in OV> 03/10/191416 Dictated By: Aj Cueto MD Dictated Date/Time: 03/10/191410 Transcribed Date/Time: 03/10/191410 Copy to: CC:Donavan Calvert MD; Jin Lion DC; Long Trinidad NP Imaging - [facility] Imaging - [facility] Imaging - [facility] [address] [place] [address] [address] [address] ph ([phone]) ph ([phone]) ph ([phone]) End of Report Content Respiratory Course/Dx - Course Course Of Treatment: I discussed the need to f/u with PCP , see a life sciences teacher, discussed low dose ct and quitting smoking. Pt verbalized understanding and agreed to plan of care. - Differential Dx/Diagnosis Differential Diagnosis/HQI/PQRI: Bronchitis, Exacerbation Of COPD Provider Diagnosis: Wheezing Discharge ED - Sign-Out/Discharge Documenting (check all that apply): Patient Departure All imaging exams completed and their final reports reviewed: No Studies - I copied an pasted the imaging results from yunior day before - Discharge Plan Condition: Stable Disposition: HOME Prescriptions: Albuterol HFA INHALER* [Ventolin HFA Inhaler*] 1 - 2 puff INH Q4H PRN #1 mdi PRN Reason: Sob/Wheezing predniSONE TAB* [Deltasone 20 MG TAB*] 60 mg PO DAILY #12 tab Patient Education Materials: Wheezing (ED) Referrals: Donavan Calvert MD [Primary Care Provider] - If Needed Mandeep Schuler MD [Medical Doctor] - If Needed Brayan Joy MD [Medical Doctor] - If Needed Fidelia Hernandez NP [Nurse Practitioner] - If Needed Lito Tucker MD [Medical Doctor] - If Needed Additional Instructions: Please discontinue taking any antibiotics previously prescribed. It is recommended that you follow up with your PCP as soon as possible. You should also quit using all and any tobacco products. Given your tobacco use history, you may qualify for a low dose cat scan screening. You have been given the name of a life sciences teacher for further evaluation and testing. - Billing Disposition and Condition Condition: STABLE Disposition: Home
== END 2019-03-11 09:36 | disposition home or self-care (01) ==
LOC: UCCORT 08:37
DX: J03.00 Acute streptococcal tonsillitis, unspecified (principal); R09.81 Nasal congestion; R09.89 Other specified symptoms and signs involving the circulatory and respiratory systems; R53.83 Other fatigue; R05 Cough; R06.02 Shortness of breath; R06.2 Wheezing; J44.9 Chronic obstructive pulmonary disease, unspecified; F17.210 Nicotine dependence, cigarettes, uncomplicated; Z88.1 Allergy status to other antibiotic agents; Z91.040 Latex allergy status
CPT/HCPCS: 99212; G0463